=== PATIENT | female | born 2000 | race Hispanic/Latino ===

== ENCOUNTER 2022-06-02 11:12 | Observation (INO) | payer MEDICAID ==
[~2022-06-02] VITALS: Ht 162.6 cm; Wt 93.4 kg
[2022-06-02 12:20] VITALS: BP 112/79
== END 2022-06-02 12:30 | disposition home or self-care (01) ==
LOC: EDH 11:12 → LDH 11:13
PROVIDERS: ADMIT Internal Medicine; ATTEND Internal Medicine
DX: O36.8120 Decreased fetal movements, second trimester, not applicable or unspecified (principal); Z3A.27 27 weeks gestation of pregnancy
CPT/HCPCS: G0378

== ENCOUNTER 2022-12-31 03:30 | Emergency (ER) | payer MEDICAID ==
[~2022-12-31] VITALS: Ht 162.6 cm; Wt 87.1 kg
[~2022-12-31 03:30] MED LIST: PNV-5 PO
[2022-12-31 03:31] VITALS: BP 114/63
== END 2023-01-01 03:38 | disposition left against medical advice (07) ==
LOC: EDH 03:30
DX: R10.9 Unspecified abdominal pain (principal); Z53.21 Procedure and treatment not carried out due to patient leaving prior to being seen by health care provider
CPT/HCPCS: 99281

== ENCOUNTER 2023-02-19 02:38 | Emergency (ER) | payer MEDICAID ==
[~2023-02-19] VITALS: Ht 162.6 cm; Wt 88.5 kg
[2023-02-19] MEDS ORDERED: ONDANSETRON 4MG INJ ONE (02:50)
[2023-02-19] MEDS: LACTATED RINGERS 1000ML IV SCH ×2 (02:56→03:47)
[2023-02-19 03:00] LABS: BASOPHILS % (AUTO) 0.9 % (0.0-5.0); EOSINOPHILS # (AUTO) 0.31 K/uL (0.00-0.70); EOSINOPHILS % (AUTO) 2.9 % (0.0-8.0); HEMATOCRIT 43.6 % (36-48); IMMATURE GRANULOCYTE ABSOLUTE 0.02 K/uL (0-1); LYMPHOCYTES # (AUTO) 4.6 K/uL (1.0-4.8); LYMPHOCYTES % (AUTO) 42.4 % (21.0-51.0); MEAN CORPUSCULAR HEMOGLOBIN 27.2 pg (27.0-33.0); MEAN CORPUSCULAR HGB CONC 32.1 g/dL (32.0-36.0); MEAN CORPUSCULAR VOLUME 84.7 fL (79-99); MONOCYTES # (AUTO) 0.8 K/uL (0.1-1.0); NEUTROPHILS % (AUTO) 46.6 % (40.0-77.0); PLATELET COUNT (AUTO) 247 K/uL (130-400); RED BLOOD CELL COUNT(AUTO) 5.15 MIL/uL (4.00-5.50); RED CELL DISTRIBUTION WIDTH 15.2 % (11.0-15.5); WHITE BLOOD COUNT (AUTO) 10.8 K/uL (4.8-10.8)
[2023-02-19] MEDS ORDERED: ONDANSETRON 4MG INJ IVP ONE (03:00)
[2023-02-19 03:10] LABS: CREATININE 0.7 mg/dL (0.5-1.5); POTASSIUM 3.6 mmol/L (3.5-5.1)
[2023-02-19 03:15] LABS: ALBUMIN 3.7 g/dL (3.5-5.0); BILIRUBIN,TOTAL 0.7 mg/dL (0.2-1.0); TOTAL PROTEIN, SERUM 8.1 g/dL (6.0-8.3)
[2023-02-19 03:47] VITALS: BP 121/68; PULSE 78; RESP 16; O2SAT 98
[2023-02-19] MEDS ORDERED: MORPHINE 4 MG SYG IVP ONE (04:00)
== END 2023-02-19 04:40 | disposition home or self-care (01) ==
LOC: EDH 02:38
DX: K80.70 Calculus of gallbladder and bile duct without cholecystitis without obstruction (principal); K76.0 Fatty (change of) liver, not elsewhere classified
CPT/HCPCS: 99285; 96374; 76705; 96361; 80053; 83690; 85025; 81025; 36415; J7120; J2405